=== PATIENT | female | born 1980 | race African-American/Black ===

== ENCOUNTER 2017-08-17 18:19 | Emergency (ER) | payer MEDICAID ==
[~2017-08-17] VITALS: Ht 157.5 cm; Wt 123.0 kg
[~2017-08-17 18:19] MED LIST: HYDR-523; IBUP-779; [UNRECOGNIZED DRUG - OTHER]
[2017-08-17] MEDS ORDERED: KETOROLAC 30MG/ML VIAL IM ONE (22:30)
[2017-08-17] MEDS ORDERED: CYCLOBENZAPRINE 10MG TABLET PO ONE (22:30)
[2017-08-17 23:48] LABS: CHLORIDE 106 mEq/L (98-107)
[2017-08-17 23:58] LABS: PHOSPHORUS 3.7 mg/dL (2.5-4.9)
[2017-08-18 00:56] VITALS: BP 105/55
== END 2017-08-18 00:59 | disposition left against medical advice (07) ==
LOC: ER 22:01
DX: M54.2 Cervicalgia (principal); V49.9XXA Car occupant (driver) (passenger) injured in unspecified traffic accident, initial encounter; Y93.89 Activity, other specified; Y92.89 Other specified places as the place of occurrence of the external cause; Y99.2 Volunteer activity; Z98.890 Other specified postprocedural states
CPT/HCPCS: 36415; 73030; 80069; 81025; 96372; 99285; J1885; Z7610

== ENCOUNTER 2018-05-20 07:01 | Emergency (ER) | payer MEDICAID ==
[~2018-05-20] VITALS: Ht 157.5 cm; Wt 122.0 kg
[2018-05-20 08:27] VITALS: BP 118/62
== END 2018-05-20 10:00 | disposition home or self-care (01) ==
LOC: ER 07:01
DX: J06.9 Acute upper respiratory infection, unspecified (principal); Z98.890 Other specified postprocedural states
CPT/HCPCS: 99281

== ENCOUNTER 2020-12-13 20:20 | Emergency (ER) | payer MEDICAID, OTHER ==
[~2020-12-13] VITALS: Ht 157.5 cm; Wt 125.0 kg
[2020-12-13 20:46] VITALS: BP 121/66
[2020-12-13] MEDS ORDERED: ONDANSETRON 4MG ODT PO ONE (21:30)
[2020-12-13] MEDS ORDERED: MORPHINE SULFATE 4 MG/ML CPJ (NOT FOR IM USE) IV ONE (21:30)
[2020-12-13] MEDS ORDERED: MORPHINE SULFATE 10 MG/ML CPJ IM ONE (21:45)
[2020-12-13] MEDS ORDERED: HYDR-4346 MT ×2 (22:15→22:46)
[2020-12-13] MEDS ORDERED: IBUP-2029 MT ×2 (22:15→22:46)
== END 2020-12-14 00:58 | disposition home or self-care (01) ==
LOC: ER 20:20
DX: S82.441A Displaced spiral fracture of shaft of right fibula, initial encounter for closed fracture (principal); Y93.01 Activity, walking, marching and hiking; W10.8XXA Fall (on) (from) other stairs and steps, initial encounter; Y92.018 Other place in single-family (private) house as the place of occurrence of the external cause; J45.909 Unspecified asthma, uncomplicated
CPT/HCPCS: 29515; 73610; 96372; 99283; J2270; Q0162

== ENCOUNTER 2022-12-22 06:26 | Emergency (ER) | payer MEDICAID ==
[~2022-12-22] VITALS: Ht 157.5 cm; Wt 86.0 kg
[~2022-12-22 06:26] MED LIST changes: +HYDR-4346 MT; +IBUP-2029 MT
[2022-12-22 06:39] VITALS: TEMP 98.9; O2SAT 100
[2022-12-22] MEDS ORDERED: KETOROLAC 60MG/2ML VIAL IM ONE (07:30)
[2022-12-22 07:36] VITALS: BP 108/76; PULSE 63; RESP 16
[2022-12-22] MEDS ORDERED: IBUPROFEN 800MG TABLET PO ONE (08:30)
[2022-12-22] MEDS ORDERED: IBUPROFEN 400MG TABLET PO SCH (09:00)
== END 2022-12-22 09:52 | disposition home or self-care (01) ==
LOC: ER 06:26
DX: J02.9 Acute pharyngitis, unspecified (principal); J45.909 Unspecified asthma, uncomplicated
CPT/HCPCS: 81025; 87430; 87070; 99283; Z7610; J1885

== ENCOUNTER 2023-07-17 18:17 | Emergency (ER) | payer MEDICAID ==
[~2023-07-17] VITALS: Ht 157.5 cm; Wt 91.0 kg
[2023-07-17 18:26] VITALS: O2SAT 96
[2023-07-17 20:11] LABS: BASOPHILS % 0.4 % (0.0-2.0); EOSINOPHILS % 1.2 % (0.0-5.0); HEMATOCRIT. 36.2 % (36.0-48.0); HEMOGLOBIN. 11.6 g/dL (12.0-16.0); LYMPHOCYTES % 15.8 % (20.0-50.0); MEAN CORPUSCULAR HEMOGLOBIN 29.3 pg (28.0-32.0); MEAN CORPUSCULAR HGB CONC 32.1 g/dL (31.0-37.0); MEAN CORPUSCULAR VOLUME 91.2 fL (81.0-99.0); MEAN PLATELET VOLUME 8.2 fl (7.4-10.4); MONOCYTES % 5.6 % (2.0-8.0); PLATELET 219 x1000/uL (130-400); RED BLOOD CELL COUNT 3.97 mill/uL (4.2-5.4); RED CELL DISTRIBUTION WIDTH 12.9 % (11.6-14.6)
[2023-07-17 20:22] LABS: HCG SCREEN NEGATIVE
[2023-07-17 20:25] LABS: ALBUMIN 4.1 g/dL (3.2-4.8); CALCIUM 9.3 mg/dL (8.7-10.4); CARBON DIOXIDE 25 mEq/L (21-32); CHLORIDE 108 mEq/L (98-107); CREATININE 0.8 mg/dL (0.6-1.0); GLUCOSE 124 mg/dL (70-105); POTASSIUM 3.9 mEq/L (3.5-5.1); PROTEIN TOTAL 7.6 g/dL (6.0-8.3); SODIUM 142 mEq/L (136-145); UREA NITROGEN BLOOD 14 mg/dL (9-23)
[2023-07-17 20:26] LABS: ALANINE AMINOTRANSFERASE 68 IU/L (10-49); ASPARTATE AMINOTRANSFERASE 164 IU/L (<34); BILIRUBIN TOTAL 1.4 mg/dL (0.1-1.0)
[2023-07-18 00:19] LABS: TROPONIN I HIGH SENSITIVITY < 4 ng/L (3.0-34)
[2023-07-18] MEDS ORDERED: ONDANSETRON HCL 4MG TABLET PO ONE (01:30)
[2023-07-18] MEDS ORDERED: ONDA4TAB50 MT (03:15)
[2023-07-18] MEDS ORDERED: NAPR-1176 MT (03:15)
[2023-07-18 03:36] VITALS: BP 96/62; PULSE 68; RESP 18; TEMP 97.7
== END 2023-07-18 03:38 | disposition home or self-care (01) ==
LOC: ER 18:17
DX: R10.13 Epigastric pain (principal); J45.909 Unspecified asthma, uncomplicated; I10 Essential (primary) hypertension; Z79.899 Other long term (current) drug therapy; Z98.890 Other specified postprocedural states
CPT/HCPCS: 36415; 74176; 80053; 84484; 84703; 85025; 93005; 99284